=== PATIENT | female | born 1990 | race American Indian/Alaskan Native ===

== ENCOUNTER 2017-11-02 18:32 | Emergency (ER) | payer BC, OTHER ==
[2017-11-02] MEDS ORDERED: Sodium Chloride 0.9% 1,000 ML IV ONE (19:26)
--- NOTE | 2017-11-02 19:26 | C.PDOC ---
History Of Present Illness Patient presents to the ER with a complaint of abdominal pain and vaginal spotting. Patient states she took a test at home 1 week ago that came back positive. She is with one miscarriage. Denies fever, chills, nausea, or vomiting. Time Seen by Provider: 11/02/17 19:26 Chief Complaint (Nursing): Abdominal Pain History Per: Patient History/Exam Limitations: no limitations Onset/Duration Of Symptoms: Days Current Symptoms Are (Timing): Still Present Severity: Moderate Pain Scale Rating Of: 4 Location Of Pain/Discomfort: Diffuse Radiation Of Pain To:: None Quality Of Discomfort: Unable To Describe Associated Symptoms: Other (Vaginal spotting). denies: Fever, Chills, Nausea, Vomiting Exacerbating Factors: None Alleviating Factors: None Recent travel outside of the [place]: No Past Medical History Reviewed: Historical Data, Nursing Documentation, Vital Signs Vital Signs: Last Vital Signs Temp 98.5 F 11/02/17 19:10 Pulse 74 11/02/17 23:00 Resp 16 11/02/17 23:00 BP 134/74 11/02/17 23:00 Pulse Ox 100 11/02/17 23:46 - Medical History PMH: Asthma Family History: States: Unknown Family Hx - Social History Hx Alcohol Use: No Hx Substance Use: No - Immunization History Hx Tetanus Toxoid Vaccination: No Hx Influenza Vaccination: No Hx Pneumococcal Vaccination: No Review Of Systems Constitutional: Negative for: Fever, Chills Cardiovascular: Negative for: Chest Pain, Palpitations Respiratory: Negative for: Cough, Shortness of Breath Gastrointestinal: Positive for: Abdominal Pain. Negative for: Nausea, Vomiting Genitourinary: Positive for: Vaginal Bleeding Physical Exam - Physical Exam Appears: Non-toxic Skin: Warm, Dry Head: Normacephalic Oral Mucosa: Moist Chest: Symmetrical, No Tenderness Cardiovascular: Rhythm Regular Respiratory: No Rales, No Rhonchi, No Wheezing Gastrointestinal/Abdominal: Soft, Tenderness (Mild diffuse), No Guarding, No Rebound Back: No CVA Tenderness Neurological/Psych: Oriented x3 ED Course And Treatment - Laboratory Results Result Diagrams: 11/02/17 19:51 11/02/17 19:51 O2 Sat by Pulse Oximetry: 100 (room air) Pulse Ox Interpretation: Normal Progress Note: Blood work and urinalysis ordered. IV fluids administered. 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 Patient will be discharged home . Counseling was provided and all questions were answered regarding diagnosis and need for follow up with your pit furnace operator. There is agreement to discharge plan. Return if symptoms persist or worsen. Disposition Counseled Patient/Family Regarding: Studies Performed, Diagnosis, Need For Followup - Disposition Referrals: Alec Ledesma MD [Staff Provider] - Disposition: HOME/ ROUTINE Disposition Time: 19:26 Condition: FAIR Additional Instructions: Please follow up with your pit furnace operator. Do return in 5-7 days for repeat bHCG. DO return if heavy vaginal bleeding, severe abdominal pain, dizzy or just not feeling well, in order to ruler out an ectopic Instructions: Bleeding With (DC), Threatened Miscarriage (DC) Forms: [email or web address] (French) - Clinical Impression Clinical Impression: Threatened - Scribe Statement The provider has reviewed the documentation as recorded by the Scribkrista Ford All medical record entries made by the Scribe were at my direction and personally dictated by me. I have reviewed the chart and agree that the record accurately reflects my personal performance of the history, physical exam, medical decision making, and the department course for this patient. I have also personally directed, reviewed, and agree with the discharge instructions and disposition.
[2017-11-02 19:55] LABS: BASO % 0.4 % (0.0-2.0); EOS % 0.1 % (0.0-4.0); HEMOGLOBIN 12.9 g/dL (11.0-16.0); LYMPH % 12.6 % (20.0-40.0); MEAN CELL VOLUME 88.4 fL (81.0-99.0); MEAN CORPUSCULAR HEMOGLOBIN 31.9 pg (27.0-31.0); MEAN CORPUSCULAR HGB CONC 36.1 g/dL (33.0-37.0); MEAN PLATELET VOLUME 7.2 fL (7.2-11.7); MONO # 0.5 K/uL (0.0-0.8); MONO % 5.8 % (0.0-10.0); NEUT # 6.5 K/uL (1.8-7.0); NEUT % 81.1 % (50.0-75.0); NRBC % 0.1 % (0.0-2.0); RBC 4.05 Mil/uL (3.80-5.20); RED CELL DISTRIBUTION WIDTH 12.6 % (11.5-14.5); WHITE BLOOD COUNT 8.1 K/uL (4.8-10.8)
[2017-11-02 20:05] LABS: INR 1.2; PROTHROMBIN TIME 12.8 SECONDS (9.7-12.2)
[2017-11-02 20:09] LABS: ALB/GLOB RATIO 1.2 (1.0-2.1); ALBUMIN 4.5 g/dL (3.5-5.0); ALT/SGPT 22 U/L (9-52); AST/SGOT 26 U/L (14-36); BLOOD UREA NITROGEN 13 mg/dL (7-17); CALCIUM 9.3 mg/dl (8.6-10.4); GFR NON-AFRICAN AMERICAN > 60; SQUAMOUS EPITHIAL 3 /hpf (0-5); URINE BACTERIA RARE (<OCC); URINE BILIRUBIN NEGATIVE (NEGATIVE); URINE BLOOD 3+ (NEGATIVE); URINE CLARITY Hazy (Clear); URINE COLOR Yellow (YELLOW); URINE GLUCOSE (UA) NORMAL (Normal); URINE LEUKOCYTE ESTERASE NEG Leu/uL (Negative); URINE PROTEIN 2+ mg/dL (NEGATIVE); URINE UROBILINOGEN NORMAL mg/dL (0.2-1.0)
[2017-11-02] MEDS ORDERED: Sodium Chloride 0.9% 1,000 ML ONE (20:10)
[2017-11-02 23:35] VITALS: O2SAT 100
[2017-11-02 23:37] VITALS: RESP 16
[2017-11-03 00:26] VITALS: BP 112/78; PULSE 73; TEMP 98.6
--- NOTE | 2017-11-03 11:53 | US ---
Date of service: 11/02/17 Ultrasound-pelvis Indication: vag bleed, hcg 2400 Technique: A real-time transabdominal pelvic ultrasound was performed. In addition, a transvaginal pelvic ultrasound was necessary to better depict pelvic anatomy. Comparison: None available Findings: Uterus measures approximately 12.3 x 5.5 x 6.3 cm. Anteverted. Cervix length measures approximately 3.9 cm. Thickened endometrial stripe measures approximately 2.0 cm. The right ovary measures 3.2 x 2.2 x 2.6 cm and appears unremarkable. The left ovary measures 5.5 x 2.2 x 4.0 cm with evidence of multiple cysts as well as heterogeneous 1.2 x 1.1 x 1.1 cm complex appearing cyst. Blood flow is noted to both ovaries. No significant pelvic free fluid identified. Impression: No evidence of intrauterine gestational sac. If indeed the patient is based on serum beta HCG values, the sonographic findings represent either: Very early IUP; embryonic demise; ectopic gestation. Follow-up with serial quantitative serum beta HCG measurements and post OBGYN follow-up as clinically indicated, since ectopic gestation cannot be excluded based only on sonographic findings. Thickened endometrium. Enlarged left ovary with multiple probable cysts. Indeterminate 1.2 cm possible complex cyst is also evident. Correlate clinically and recommend attention on follow-up. Preliminary impression was provided by virtual radiologic. Study marked for PA review.
== END 2017-11-03 00:43 | disposition home or self-care (01) ==
LOC: C.ER 18:32
DX: O20.0 Threatened abortion (principal); Z3A.00 Weeks of gestation of pregnancy not specified
CPT/HCPCS: 76830; 76856; 80053; 81001; 84702; 85025; 85610; 85730; 86850; 86900; 96360; 99285; J7030